=== PATIENT | female | born 1965 | race Caucasian/White ===

== ENCOUNTER 2018-11-04 06:57 | Day surgery (SDC) | payer OTHER ==
[2018-11-03 12:26] VITALS: BMI 30.8
[~2018-11-04 06:57] MED LIST: ACETAMINOPHEN 325 MG TABLET (FP) PO PRN; BSS (NA/CA/MG/K) BALANCED SALT SOLUTION OPHTH SOLN 15 ML BOTTLE OD ONE; CHONDROITIN SU A/HYALUR SOD 1 KIT IO ONE; EPINEPHrine/PF 1 MG/1 ML (1:1,000) AMPULE SQ ONE; LIDOCAINE HCL 1% PRESERVATIVE FREE - 30ML VIAL IO ONE; POVIDONE-IODINE 5% OPHTHALMIC PREP 30 ML SOLUTION OD ONE; TETRACAINE 0.5% OPHTH SOLN 2 ML BOTTLE OD ONE
[2018-11-04] MEDS ORDERED: CHONDROITIN SU A/HYALUR SOD 1 KIT ONE (07:10)
[2018-11-04] MEDS ORDERED: OFLOXACIN 0.3% OPHTHALMIC SOLUTION 5 ML BOTTLE ONE (07:29)
[2018-11-04] MEDS ORDERED: EPINEPHrine/PF 1 MG/1 ML (1:1,000) AMPULE ONE ×2 (07:29→07:54)
[2018-11-04] MEDS ORDERED: TROPICAMIDE 0.5% OPHTHALMIC SOLN 15 ML BOTTLE ONE (07:29)
[2018-11-04] MEDS ORDERED: LIDOCAINE HCL/PF 1% SDV 5ML VIAL ONE ×2 (07:30→07:54)
[2018-11-04] MEDS ORDERED: KETOROLAC TROMETHAMINE 0.5% EYE DROP 1 DROP DROPS ONE (07:30)
[2018-11-04] MEDS ORDERED: CYCLOPENTOLATE HCL 1% OPHTH SOLN 2 ML BOTTLE ONE (07:30)
[2018-11-04] MEDS: CYCLOPENTOLATE HCL 1% OPHTH SOLN 2 ML BOTTLE OP SCH ×2 (07:47→08:17)
[2018-11-04] MEDS: KETOROLAC TROMETHAMINE 0.5% EYE DROP 1 DROP DROPS OP SCH ×2 (07:48→08:17)
[2018-11-04] MEDS: OFLOXACIN 0.3% OPHTHALMIC SOLUTION 5 ML BOTTLE OP SCH ×2 (07:48→08:17)
[2018-11-04] MEDS: PHENYLEPHRINE 2.5% OPHTH SOLN 15 ML BOTTLE OP SCH ×2 (07:49→08:18)
[2018-11-04] MEDS: TROPICAMIDE 1% OPHTH SOLN 15 ML BOTTLE OP SCH ×2 (07:49→08:18)
[2018-11-04] MEDS ORDERED: BSS (NA/CA/MG/K) BALANCED SALT SOLUTION OPHTH SOLN 15 ML BOTTLE ONE (07:55)
[2018-11-04] MEDS ORDERED: TETRACAINE 0.5% OPHTH SOLN 2 ML BOTTLE ONE (07:55)
[2018-11-04] MEDS ORDERED: TRYPAN BLUE 0.5 ML DISP.SYRIN ONE (07:55)
[2018-11-04] MEDS ORDERED: MIDAZOLAM HCL 2 MG/2 ML SINGLE DOSE VIAL ONE (09:00)
[2018-11-04] MEDS ORDERED: TETRACAINE 0.5% OPHTH SOLN 2 ML BOTTLE OD ONE (09:11)
[2018-11-04] MEDS ORDERED: POVIDONE-IODINE 5% OPHTHALMIC PREP 30 ML SOLUTION OD ONE (09:12)
[2018-11-04] MEDS ORDERED: BSS (NA/CA/MG/K) BALANCED SALT SOLUTION OPHTH SOLN 15 ML BOTTLE OD ONE (09:22)
[2018-11-04] MEDS ORDERED: LIDOCAINE HCL 1% PRESERVATIVE FREE - 30ML VIAL IO ONE (09:23)
[2018-11-04] MEDS ORDERED: CHONDROITIN SU A/HYALUR SOD 1 KIT IO ONE (09:24)
[2018-11-04] MEDS ORDERED: EPINEPHrine/PF 1 MG/1 ML (1:1,000) AMPULE SQ ONE (09:30)
--- NOTE | 2018-11-04 10:07 | SPEC ---
DATE OF SURGERY: DATE OF DICTATION: 11/04/2018 OPERATION: Phacoemulsification with posterior chamber intraocular lens implantation, right eye. Lens used [id number], 23.0 Diopter power, Serial No. [id number]. PREOPERATIVE DIAGNOSIS: Cataract, right eye. POSTOPERATIVE DIAGNOSIS: Cataract, right eye. SURGEON: Jesus Friedman M.D. ANESTHESIA: Topical MAC. COMPLICATIONS: None. PROCEDURE: The patient was brought to the operating room and correctly identified along with the operative site and the correct intraocular lens marsh. The patient was then prepped and draped in the usual sterile fashion including 5% Betadine solution in the conjunctival sac and an eyelid drape. An eyelid speculum was then placed in the eye. A paracentesis port was created and approximately 0.5 mL of preservative free Lidocaine was then injected into the eye. Viscoelastic was then injected to inflate the anterior chamber. A temporal clear corneal wound was created. A continuous circular capsulorrhexis was performed. The nucleus was then hydrodissected with BSS and removed with phacoemulsification. The remaining cortical material was irrigated and aspirated. Viscoelastic was injected to inflate the capsular bag and the intraocular lens was then implanted into the capsular bag. The remaining Viscoelastic was irrigated and aspirated from the eye. The IOL was noted to be well centered and completely covered by the anterior capsulorrhexis. Topical vancomycin was placed and the eye patched and shielded. All wounds were tested and found to be watertight. No suture was placed. The eye was then shielded. The patient was then discharged from the operating room in stable condition. JESUS FRIEDMAN M.D. [id number]
[2018-11-04] MEDS ORDERED: ACETAMINOPHEN 325 MG TABLET (FP) ONE (11:36)
[2018-11-04 12:06] VITALS: BP 141/90; PULSE 74; TEMP 97.8
== END 2018-11-04 11:45 | disposition home or self-care (01) ==
LOC: JASU-SURG 06:57
PROVIDERS: ATTEND Ophthalmology
PROC: 08RJ3JZ Replacement of Right Lens with Synthetic Substitute, Percutaneous Approach (ICD-10-PCS; principal; 2018-11-04 09:00)
DX: H26.9 Unspecified cataract (principal)
CPT/HCPCS: 82962

== ENCOUNTER 2022-06-17 15:13 | Emergency (ER) | payer OTHER ==
[2022-06-17 15:43] VITALS: BP 120/74; PULSE 84; RESP 17; TEMP 98.4; BMI 30.8
[2022-06-17] MEDS ORDERED: LIDOCAINE 5% TOPICAL PATCH TP ONE (16:57)
[2022-06-17] MEDS ORDERED: KETOROLAC TROMETHAMINE 30 MG/1 ML VIAL IM ONE (16:57)
[2022-06-17] MEDS ORDERED: ACETAMINOPHEN 500 MG TABLET (FP) PO ONE (16:57)
[2022-06-17] MEDS ORDERED: LIDOCAINE 5% TOPICAL PATCH ONE (17:08)
[2022-06-17] MEDS ORDERED: KETOROLAC TROMETHAMINE 30 MG/1 ML VIAL ONE (17:08)
[2022-06-17] MEDS ORDERED: ACETAMINOPHEN 500 MG TABLET (FP) ONE (17:08)
[2022-06-17] MEDS ORDERED: LIDOCAINE PATCH REMOVAL MC SCH (22:00)
== END 2022-06-17 17:35 | disposition home or self-care (01) ==
LOC: JERFT 15:13
PROC: 3E023GC Introduction of Other Therapeutic Substance into Muscle, Percutaneous Approach (ICD-10-PCS; principal; 2022-06-17)
DX: M54.42 Lumbago with sciatica, left side (principal); S46.912A Strain of unspecified muscle, fascia and tendon at shoulder and upper arm level, left arm, initial encounter; W19.XXXA Unspecified fall, initial encounter
CPT/HCPCS: 99284-25

== ENCOUNTER 2023-01-16 11:49 | Emergency (ER) | payer OTHER ==
[2023-01-16 12:09] VITALS: BP 111/85; PULSE 90; RESP 18; TEMP 98.3; BMI 29.9
[2023-01-16] MEDS ORDERED: ACETAMINOPHEN 500 MG TABLET (FP) PO ONE (13:49)
[2023-01-16] MEDS ORDERED: IBUPROFEN 600 MG TABLET (FP) PO ONE ×2 (13:49→14:10)
[2023-01-16] MEDS ORDERED: ACETAMINOPHEN 325 MG TABLET (FP) ONE (14:09)
== END 2023-01-16 15:57 | disposition home or self-care (01) ==
LOC: JERFT 11:49 → JER 11:49 → JERFT 15:57
DX: M79.671 Pain in right foot (principal); M25.562 Pain in left knee; Z87.898 Personal history of other specified conditions
CPT/HCPCS: 73610-TC-RT-FY; 73630-TC-RT-FY; 99283-25

== ENCOUNTER 2023-11-02 11:36 | Emergency (ER) | payer OTHER ==
[2023-11-02 11:50] VITALS: RESP 18; TEMP 98.2; BMI 22.7
[2023-11-02] MEDS ORDERED: ACETAMINOPHEN 325 MG TABLET (FP) PO ONE (12:50)
[2023-11-02] MEDS ORDERED: LIDOCAINE 5% TOPICAL PATCH TP ONE (12:50)
[2023-11-02] MEDS ORDERED: ACETAMINOPHEN 325 MG TABLET (FP) ONE (13:01)
[2023-11-02] MEDS ORDERED: LIDOCAINE 4% PATCH TP ONE (13:01)
[2023-11-02] MEDS ORDERED: DIPHTH,PERTUSS(ACELL),TET 0.5 ML DISP.SYRIN IM ONE (13:18)
[2023-11-02 14:56] VITALS: BP 142/85; PULSE 70
[2023-11-02] MEDS ORDERED: LIDOCAINE PATCH REMOVAL MC SCH (22:00)
== END 2023-11-02 17:04 | disposition home or self-care (01) ==
LOC: JER 11:36
DX: M54.50 Low back pain, unspecified (principal)
CPT/HCPCS: 72131-TC; 99284-25